=== PATIENT | male | born 1935 | race Hispanic/Latino ===

== ENCOUNTER 2017-12-22 21:27 | Inpatient (IN) | payer MEDICARE ==
[2017-12-22 21:36] VITALS: BMI 23.7
--- NOTE | 2017-12-22 21:52 | ED PDOC ---
Arrival/HPI - General Chief Complaint: GI Problem Time Seen by Provider: 12/22/17 21:38 Historian: Patient - History of Present Illness Narrative History of Present Illness (Text): 12/22/17 21:49 82 year old male, whose past medical history includes melanoma in the distance past, presents to the emergency department complaining of nausea and diarrhea which began earlier today. According to the family, patient has been feeling weak and fell one time hitting his head.Unknown LOC. Patient also had a few alcoholic drinker earlier. Patient denies any fever, chills, chest pain, shortness of breath, abdominal pain, vomiting, urinary symptoms, back pain, neck pain, headache, dizziness, or any other complaints. PMD: Dr. Haskins Time/Duration: Other (early today) Symptom Onset: Gradual Symptom Course: Unchanged Activities at Onset: Light Context: Home Past Medical History - Provider Review Nursing Documentation Reviewed: Yes - Tetanus Immunization Tetanus Immunization: Unknown - Cardiac Hx Hypertension: Yes - Integumentary Hx Melanoma: Yes - Musculoskeletal/Rheumatological Hx Falls: Yes Hx Unsteady Gait: Yes (knee replacement) - Psychiatric Hx Substance Use: No - Surgical History Hx Musculoskeletal Surgery: Yes (knee) Other/Comment: Left axillary lymph nodes removal - Suicidal Assessment Feels Threatened In Home Enviroment: No Family/Social History - Physician Review Nursing Documentation Reviewed: Yes Family/Social History: No Known Family HX Smoking Status: Never Smoked Hx Alcohol Use: Yes Frequency of alcohol use: Socially Hx Substance Use: No Allergies/Home Meds Allergies/Adverse Reactions: Allergies No Known Allergies Allergy (Verified 12/22/17 22:15) Home Medications: Home Meds Medication Instructions Recorded Confirmed No Known Home Med 12/22/17 12/22/17 Review of Systems - Physician Review All systems were reviewed & negative as marked: Yes - Review of Systems Constitutional: absent: Fevers, Other (Chills) Respiratory: absent: SOB Cardiovascular: absent: Chest Pain Gastrointestinal: Diarrhea, Nausea. absent: Abdominal Pain, Vomiting Genitourinary Male: absent: Dysuria, Frequency, Hematuria Musculoskeletal: absent: Back Pain, Neck Pain Neurological: absent: Headache, Dizziness Physical Exam Vital Signs Reviewed: Yes Vital Signs Temp Pulse Resp BP Pulse Ox 12/23/17 01:05 98.9 F 102 H 18 138/58 L 97 12/22/17 22:00 99.6 F 93 H 18 140/74 96 12/22/17 21:53 100.1 F H 118 H 19 134/73 97 Temperature: Febrile Blood Pressure: Normal Pulse: Tachycardic Respiratory Rate: Normal Appearance: Positive for: Well-Appearing, Non-Toxic, Comfortable Pain Distress: None Mental Status: Positive for: Alert and Oriented X 3 - Systems Exam Head: Present: Atraumatic, Normocephalic Pupils: Present: PERRL Extroacular Muscles: Present: EOMI Conjunctiva: Present: Normal Mouth: Present: Dry (slight) Neck: Present: Normal Range of Motion Respiratory/Chest: Present: Clear to Auscultation, Good Air Exchange. No: Respiratory Distress, Accessory Muscle Use Cardiovascular: Present: Regular Rate and Rhythm, Normal S1, S2. No: Murmurs Abdomen: No: Tenderness, Distention, Peritoneal Signs Back: Present: Normal Inspection Upper Extremity: Present: Normal Inspection. No: Cyanosis, Edema Lower Extremity: Present: Normal Inspection. No: Edema Neurological: Present: GCS=15, CN II-XII Intact, Speech Normal, Motor Func Grossly Intact, Normal Sensory Function Skin: Present: Warm, Dry, Normal Color. No: Rashes Psychiatric: Present: Alert, Oriented x 3, Normal Insight, Normal Concentration Medical Decision Making ED Course and Treatment: 12/22/17 21:45 Impression: 82 year old male presents complaining of nausea and diarrhea that began earlier today. Patient also felt weak and fell hitting his head. Plan: -- CT Head w/o Contrast -- EKG -- Labs -- Chest X-ray -- IV Fluids, Zofran Inj, Ativan -- Reassess and disposition Prior Visits: Notes and results from previous visits were reviewed. Progress Notes: 12/22/17 23:22 EKG shows Sinus tachycardia at 108 BPM with non-specific ST/T wave changes. Interpreted by me. 12/22/17 23:34 CXR Impression: As read by me, ? early lower right sided infiltrate. EXAM: CT Head Without Intravenous Contrast Dictated and Authenticated by: Mata Perkins MD 12/22/2017 11:40 PM IMPRESSION: 1. No intracranial hemorrhage. 2. Probable chronic microvascular ischemic changes. 3. Incidental/non-acute findings are described above. 12/22/17 23:36 Case discussed with residential program coordinator and Dr. Barlow who is aware and agrees with the plan. Accept patient into hospitalist service. - Lab Interpretations Lab Results: 12/22/17 22:05 12/22/17 22:05 Lab Results 12/22/17 23:26: pO2 105 H, VBG pH 7.44 H, VBG pCO2 28.0 L, VBG HCO3 19.0 L, VBG Total CO2 19.9 L, VBG O2 Sat (Calc) 99.9 H, VBG Base Excess -3.8 L, VBG Potassium 4.5, Glucose 102, Lactate 1.3, FiO2 21.0, Sodium 135.0, Chloride 108.0 H, Venous Blood Potassium 4.5 12/22/17 22:25: Urine Color Yellow, Urine Appearance Cloudy, Urine pH 8.5, Ur Specific [place] 1.015, Urine Protein >=300 H, Urine Glucose (UA) Negative, Urine Ketones Negative, Urine Blood Large H, Urine Nitrate Negative, Urine Bilirubin Negative, Urine Urobilinogen 0.2, Ur Leukocyte Esterase Moderate H, Urine RBC 0 - 2, Urine WBC 20 - 25, Ur Epithelial Cells 0 - 2, Urine Bacteria Many 12/22/17 22:05: Alcohol, Quantitative < 10 12/22/17 22:05: WBC 14.5 H, RBC 4.56, Hgb 13.7 L, Hct 40.8 L, MCV 89.5, MCH 30.0 , MCHC 33.6, RDW 14.5, Plt Count 193, MPV 9.5 12/22/17 22:05: Sodium 137, Potassium 5.2 H, Chloride 105, Carbon Dioxide 22, Anion Gap 16, BUN 35 H, Creatinine 1.8 H, Est GFR ( Amer) 44, Est GFR ( Non-Af Amer) 36, Random Glucose 113 H, Calcium 10.6 H, Total Bilirubin 0.9, AST 34, ALT 13, Alkaline Phosphatase 69, Lactate Dehydrogenase 559, Total Creatine Kinase 358 H, CK-MB (CK-2) 3.7 H, CK-MB (CK-2) % Cancelled, Troponin I 0.14 H*, Total Protein 7.4, Albumin 4.0, Globulin 3.3, Albumin/Globulin Ratio 1.2, Lipase 41 12/22/17 22:05: PT 11.4, INR 1.00, APTT 28.6 I have reviewed the lab results: Yes - RAD Interpretation Radiology Orders: 12/22/17 21:43 HEAD W/O CONTRAST [CT] Stat 12/22/17 21:45 CHEST ONE VIEW [RAD] Stat - EKG Interpretation Interpreted by ED Physician: Yes Type: 12 lead EKG - Medication Orders Current Medication Orders: Amlodipine Besylate (Norvasc) 2.5 mg PO DAILY MAGDALENA Aspirin (Aspirin Chewable) 81 mg PO DAILY MAGDALENA Atorvastatin Calcium (Lipitor) 10 mg PO DIN MAGDALENA Last Admin: 12/23/17 02:51 Dose: Not Given Non-Admin Reason: Patient Asleep Sodium Chloride (Sodium Chloride 0.9%) 1,000 mls @ 100 mls/hr IV .Q10H MAGDALENA Last Admin: 12/22/17 22:41 Dose: 100 mls/hr eMAR Start Stop Document 12/22/17 22:41 LASHA (Rec: 12/22/17 22:41 [id number]) Intravenous Solution Start Date 12/22/17 Start Time 22:56 Ceftriaxone Sodium (Rocephin 1 Gram Ivpb) 1 gm in 100 mls @ 100 mls/hr IVPB DAILY MAGDLAENA PRN Reason: Protocol Lorazepam (Ativan) 0.5 mg IVP Q6H PRN; Protocol PRN Reason: Agitation Pantoprazole Sodium (Protonix Inj) 40 mg IVP DAILY MAGDALENA Discontinued Medications Aspirin (Aspirin Chewable) 81 mg PO STAT STA Stop: 12/23/17 01:46 Last Admin: 12/23/17 02:51 Dose: Not Given Non-Admin Reason: Patient Asleep Enoxaparin Sodium (Lovenox) 60 mg SC STAT STA PRN Reason: Protocol Stop: 12/22/17 23:51 Last Admin: 12/23/17 00:41 Dose: 60 mg Subcutaneous Administrations Document 12/23/17 00:41 RG (Rec: 12/23/17 00:42 LASHA [id number]) Injection Site MAR Injection Site Right Abdomen Charges for Administration # of Subcutaneous Administrations 1 Sodium Chloride (Sodium Chloride 0.9%) 500 mls @ 500 mls/hr IV .Q1H STA Stop: 12/23/17 00:45 Last Admin: 12/23/17 00:42 Dose: 500 mls/hr eMAR Start Stop Document 12/23/17 00:42 RG (Rec: 12/23/17 00:42 RG [id number]) Intravenous Solution Start Date 12/23/17 Start Time 00:42 Ceftriaxone Sodium (Rocephin 1 Gram Ivpb) 1 gm in 100 mls @ 200 mls/hr IV ONCE STA PRN Reason: Protocol Stop: 12/23/17 00:34 Last Admin: 12/23/17 00:40 Dose: 200 mls/hr eMAR Start Stop Document 12/23/17 00:40 RG (Rec: 12/23/17 00:41 RG [id number]) Intravenous Solution Start Date 12/23/17 Start Time 00:40 Azithromycin (Zithromax 500mg In Ns) 500 mg in 250 mls @ 166.667 mls/hr IV STAT STA PRN Reason: Protocol Stop: 12/23/17 01:34 Last Admin: 12/23/17 01:15 Dose: 166.667 mls/hr eMAR Start Stop Document 12/23/17 01:15 RG (Rec: 12/23/17 01:52 [id number]) Intravenous Solution Start Date 12/23/17 Start Time 01:15 Sodium Chloride (Sodium Chloride 0.9%) 500 mls @ 999 mls/hr IV .Q31M STA Stop: 12/23/17 02:48 Lorazepam (Ativan) 1 mg IVP ONCE STA PRN Reason: Protocol Stop: 12/22/17 22:36 Last Admin: 12/22/17 22:38 Dose: 1 mg IVP Administration Document 12/22/17 22:38 RG (Rec: 12/22/17 22:40 [id number]) Charges for Administration # of IVP Administrations 1 Lorazepam (Ativan) 1 mg IVP ONCE ONE PRN Reason: Protocol Stop: 12/23/17 01:01 Last Admin: 12/23/17 01:53 Dose: 1 mg IVP Administration Document 12/23/17 01:53 RG (Rec: 12/23/17 01:53 [id number]) Charges for Administration # of IVP Administrations 1 Ondansetron HCl (Zofran Inj) 4 mg IVP ONCE ONE Stop: 12/22/17 21:46 Last Admin: 12/22/17 21:55 Dose: 4 mg IVP Administration Document 12/22/17 21:55 RG (Rec: 12/22/17 22:41 [id number]) Charges for Administration # of IVP Administrations 1 - Scribe Statement The provider has reviewed the documentation as recorded by the Jackelinibrosalva Robison Provider Scribe Attestation: All medical record entries made by the Scribe were at my direction and personally dictated by me. I have reviewed the chart and agree that the record accurately reflects my personal performance of the history, physical exam, medical decision making, and the department course for this patient. I have also personally directed, reviewed, and agree with the discharge instructions and disposition. Disposition/Present on Arrival - Present on Arrival Any Indicators Present on Arrival: No History of DVT/PE: No History of Uncontrolled Diabetes: No Urinary Catheter: No History of Decub. Ulcer: No History Surgical Site Infection Following: None - Disposition Have Diagnosis and Disposition been Completed?: Yes Diagnosis: NSTEMI (non-ST elevated myocardial infarction), Sepsis, UTI (urinary tract infection) Disposition: HOSPITALIZED Disposition Time: 00:10 Patient Plan: Admission Patient Problems: Current Active Problems Problem Status Onset NSTEMI (non-ST elevated myocardial infarction) Acute Sepsis Acute UTI (urinary tract infection) Acute Condition: STABLE
[2017-12-22 22:39] LABS: HEMOGLOBIN 13.7 g/dL (14.0-18.0); MEAN CELL VOLUME 89.5 fl (80.0-105.0); MEAN CORPUSCULAR HGB CONC 33.6 g/dl (31.0-37.0); MEAN PLATELET VOLUME 9.5 fl (7.0-11.0); RBC 4.56 10^6/uL (3.5-6.1); RED CELL DISTRIBUTION WIDTH 14.5 % (11.5-14.5); WHITE BLOOD COUNT 14.5 10^3/ul (4.5-11.0)
[2017-12-22] MEDS: Sodium Chloride 0.9% 1,000 ML IV SCH (22:41)
[2017-12-22 22:46] LABS: ALB/GLOB RATIO 1.2 (1.1-1.8); CALCIUM 10.6 mg/dL (8.4-10.5)
[2017-12-22 22:47] LABS: PARTIAL THROMBOPLASTIN TIME 28.6 Seconds (25.1-36.5); PROTHROMBIN TIME 11.4 SECONDS (9.4-12.5)
[2017-12-22 23:11] LABS: TROPONIN I 0.14 ng/mL
[2017-12-22 23:14] LABS: CK-MB 3.7 ng/mL (0.0-3.6)
[2017-12-22] MEDS ORDERED: Enoxaparin 80 mg Syringe SC STA (23:35)
[2017-12-22] MEDS ORDERED: Sodium Chloride 0.9% 500 ML IV STA (23:46)
[2017-12-22] MEDS ORDERED: Enoxaparin 60 mg Syringe SC STA (23:50)
[2017-12-22 23:57] LABS: VENOUS BLOOD GAS BASE EXCESS -3.8 mmol/L (0.0-2.0); VENOUS BLOOD GAS PO2 105 mm/Hg (30-55); VENOUS BLOOD PH 7.44 (7.32-7.43)
[2017-12-23 00:01] LABS: PH,URINE 8.5 (4.7-8.0); URINE BILIRUBIN NEGATIVE (NEGATIVE); URINE BLOOD LARGE (NEGATIVE); URINE GLUCOSE (UA) NEGATIVE (NEGATIVE); URINE LEUKOCYTE ESTERASE MODERATE Leu/uL (NEGATIVE); URINE PROTEIN >=300 mg/dL (<30 mg/dL); URINE UROBILINOGEN 0.2 E.U./dL (<1 E.U./dL)
[2017-12-23] MEDS ORDERED: Azithromycin 500MG/NS 250ml 500 MG/250 ML BAG IV STA (00:05)
[2017-12-23] MEDS ORDERED: cefTRIAXone 1 gm 1 GM/100 ML BAG IV STA (00:05)
[2017-12-23 00:15] LABS: URINE APPEARANCE CLOUDY (CLEAR); URINE COLOR YELLOW (YELLOW)
[2017-12-23 00:17] LABS: URINE BACTERIA MANY (NEG); URINE EPITHELIAL CELLS 0 - 2 /hpf (0-5); URINE RBC 0 - 2 /hpf (0-2); URINE WBC 20 - 25 /hpf (0-6)
[2017-12-23] MEDS ORDERED: Sodium Chloride 0.9% 1,000 ML IV SCH (01:45)
[2017-12-23] MEDS ORDERED: Sodium Chloride 0.9% 500 ML IV STA (02:18)
[2017-12-23] MEDS ORDERED: Sod Polystyrene Sulf 15 gm/60 ml Susp PO ONE (06:05)
--- NOTE | 2017-12-23 06:12 | CP.PCM.HP ---
<MarvinHerrera - Last Filed: 12/23/17 06:06> History of Present Illness - History of Present Illness History of Present Illness: Medicine H&P: Marvin, PGY 2 IM Resident Chief Complaint: Urinary complaints HPI: 82 M with no pertinent medical history presents s/p fall and with bu rning on urination for 3-4 months. Hx provided by son who is at bedside, as patient is somnolent 2/2 ativan administration. Son states that patient has been refusing to see a doctor for his urinary complaints, but has had burning as well as foul smelling urine. Today, patient was wearing socks without shoes in the bathroom and slipped and fell. Both patient and son deny any palpitations or aura before fall. Of note, patient's son mentions that the patient had a drink earlier - questionable hx of possible alcohol abuse. Of note, ED work up reveals REYES, positive tropes, leukocytosis, UTI, sinus tachycardia, and negative head CT. ROS 12 point ROS obtained and negative except as per HPI Surgical Hx: Melanoma removal Medical Hx: Melanoma Allergies: NKDA Social Hx: +EtOH; Quit smoking 45 years ago; Denies illicits Home Meds: Reviewed, as per MAR; patient mentioned an organic supplement, did not remember name Family Hx: Non-contributory Present on Admission - Present on Admission Any Indicators Present on Admission: No Past Patient History - Tetanus Immunizations Tetanus Immunization: Unknown - Past Social History Smoking Status: Never Smoked - CARDIAC Hx Hypertension: Yes - INTEGUMENTARY Hx Melanoma: Yes - MUSCULOSKELETAL/RHEUMATOLOGICAL Hx Falls: Yes Hx Unsteady Gait: Yes (knee replacement) - PSYCHIATRIC Hx Substance Use: No - SURGICAL HISTORY Hx Musculoskeletal Surgery: Yes (knee) Other/Comment: Left axillary lymph nodes removal Meds Allergies/Adverse Reactions: Allergies Allergy/AdvReac Type Severity Reaction Status Date / Time No Known Allergies Allergy Verified 12/22/17 22:15 Physical Exam - Constitutional Appears: Non-toxic, No Acute Distress Additional comments: foul smell - Head Exam Head Exam: ATRAUMATIC, NORMAL INSPECTION, NORMOCEPHALIC - Eye Exam Eye Exam: EOMI, Normal appearance, PERRL Pupil Exam: NORMAL ACCOMODATION, PERRL - ENT Exam ENT Exam: Mucous Membranes Moist, Normal Exam - Neck Exam Neck exam: Positive for: Normal Inspection - Respiratory Exam Respiratory Exam: Clear to Auscultation Bilateral, NORMAL BREATHING PATTERN - Cardiovascular Exam Cardiovascular Exam: REGULAR RHYTHM - GI/Abdominal Exam GI & Abdominal Exam: Normal Bowel Sounds, Soft. absent: Tenderness - Extremities Exam Extremities exam: Positive for: normal inspection - Back Exam Back exam: NORMAL INSPECTION - Neurological Exam Neurological exam: Alert, CN II-XII Intact, Normal Gait, Oriented x3, Reflexes Normal - Psychiatric Exam Psychiatric exam: Normal Affect, Normal Mood - Skin Skin Exam: Dry, Intact, Normal Color, Warm Results - Vital Signs Recent Vital Signs: Last Vital Signs Temp 98.9 F 12/23/17 01:05 Pulse 102 H 12/23/17 01:05 Resp 18 12/23/17 01:05 BP 138/58 L 12/23/17 01:05 Pulse Ox 97 12/23/17 01:05 - Labs Result Diagrams: 12/22/17 22:05 12/22/17 22:05 Labs: Laboratory Results - last 24 hr 12/23/17 02:45 Troponin I 0.24 H* D Assessment & Plan - Assessment and Plan (Free Text) Assessment: 82 M with no pertinent medical history admitted for urosepsis. Patient had fever, leukocytosis, tachycardia, and mod leukocytosis with pyuria and bacteriuria on labs. No evidence of llactate or hemodynamic instability. Patient also had 1.8 CR with positive tropes and negative EKG. At this time, troponin is most likely due to REYES. Of note, patient's alcohol level is negative and he had a drink earlier today. Plan Sepsis, likely 2/2 UTI - Rocephin - IVF - Blood culture, Urine Culture - Procal REYES, likely 2/2 UTI - IVF, avoid nephrotoxic agents Elevated troponin, likely 2/2 REYES - Still do cardiac work up give patient's age - Serial EKGs and Tropes, Cardio Consult - ASA, Lipitor, CCB - TSH, A1C, Lipid Panel Possible alcohol abuse - CIWA, aspiration, fall, and seizure protocols - No Ativan for now - Advised cessation PPX - Heparin q8, Protonix <Barlow,Bankimchan - Last Filed: 12/24/17 06:31> Results - Vital Signs Recent Vital Signs: Last Vital Signs Temp 97.4 F L 12/24/17 06:00 Pulse 79 12/24/17 06:00 Resp 20 12/24/17 06:00 BP 141/79 12/24/17 06:00 Pulse Ox 96 12/24/17 06:00 - Labs Result Diagrams: 12/23/17 06:30 12/23/17 07:00 Labs: Laboratory Results - last 24 hr 12/23/17 12/23/17 12/23/17 02:45 06:30 06:30 WBC 11.2 H D RBC 4.01 Hgb 11.8 L Hct 36.0 L MCV 89.8 MCH 29.4 MCHC 32.8 RDW 15.0 H Plt Count 155 MPV 9.7 Gran % 87.1 H Lymph % (Auto) 5.9 L [place] % (Auto) 6.5 H Eos % (Auto) 0.2 L Baso % (Auto) 0.3 Gran # 9.78 H Lymph # (Auto) 0.7 L [place] # (Auto) 0.7 H Eos # (Auto) 0.0 Baso # (Auto) 0.03 Sodium Potassium Chloride Carbon Dioxide Anion Gap BUN Creatinine Est GFR ( Amer) Est GFR (Non-Af Amer) Random Glucose Hemoglobin A1c 5.2 Calcium Phosphorus Magnesium Total Bilirubin AST ALT Alkaline Phosphatase Troponin I Total Protein Albumin Globulin Albumin/Globulin Ratio Triglycerides Cholesterol LDL Cholesterol Direct HDL Cholesterol Procalcitonin 11.01 H TSH 3rd Generation 12/23/17 12/23/17 12/23/17 06:30 07:00 07:00 WBC RBC Hgb Hct MCV MCH MCHC RDW Plt Count MPV Gran % Lymph % (Auto) [place] % (Auto) Eos % (Auto) Baso % (Auto) Gran # Lymph # (Auto) [place] # (Auto) Eos # (Auto) Baso # (Auto) Sodium 139 Potassium 4.3 Chloride 112 H Carbon Dioxide 20 L Anion Gap 11 BUN 32 H Creatinine 1.4 Est GFR ( Amer) 58 Est GFR (Non-Af Amer) 48 Random Glucose 96 Hemoglobin A1c Calcium 8.9 Phosphorus 3.9 Magnesium 2.2 Total Bilirubin 0.5 AST 48 ALT 24 Alkaline Phosphatase 50 Troponin I 0.24 H* 0.23 H* Total Protein 5.8 Albumin 2.8 L Globulin 3.0 Albumin/Globulin Ratio 0.9 L Triglycerides 55 Cholesterol 110 L LDL Cholesterol Direct 34 HDL Cholesterol 53 Procalcitonin TSH 3rd Generation 1.02 Attending/Attestation - Attestation I have personally seen and examined this patient.: Yes I have fully participated in the care of the patient.: Yes I have reviewed all pertinent clinical information: Yes Notes (Text): 12/24/17 06:30 Patient was seen when he was in the ER. Medical record was reviewed. Agree with history, physical examination, assessment and plan.
[2017-12-23 07:17] LABS: BASO # 0.03 K/mm3 (0.0-2.0); BASO % 0.3 % (0.0-3.0); EOS % 0.2 % (1.5-5.0); GRAN # 9.78 (1.4-6.5); GRAN % 87.1 % (50.0-68.0); HEMOGLOBIN 11.8 g/dL (14.0-18.0); LYMPH # 0.7 (1.2-3.4); LYMPH % 5.9 % (22.0-35.0); MEAN CELL VOLUME 89.8 fl (80.0-105.0); MEAN CORPUSCULAR HEMOGLOBIN 29.4 pg (25.0-35.0); MEAN CORPUSCULAR HGB CONC 32.8 g/dl (31.0-37.0); MEAN PLATELET VOLUME 9.7 fl (7.0-11.0); MONO # 0.7 (0.1-0.6); MONO % 6.5 % (1.0-6.0); RBC 4.01 10^6/uL (3.5-6.1); WHITE BLOOD COUNT 11.2 10^3/ul (4.5-11.0)
[2017-12-23 07:32] LABS: ALB/GLOB RATIO 0.9 (1.1-1.8); ALBUMIN 2.8 g/dL (3.0-4.8); CALCIUM 8.9 mg/dL (8.4-10.5)
--- NOTE | 2017-12-23 08:05 | CT ---
Date of service: 12/22/2017 PROCEDURE: CT HEAD WITHOUT CONTRAST. HISTORY: injury COMPARISON: 08/25/2014 TECHNIQUE: Axial computed tomography images were obtained through the head/brain without intravenous contrast. Supplemental Coronal and Sagittal projectections created and reviewed. Radiation dose: Total exam DLP = 1080.93 mGy-cm. This CT exam was performed using one or more of the following dose reduction techniques: Automated exposure control, adjustment of the mA and/or kV according to patient size, and/or use of iterative reconstruction technique. FINDINGS: HEMORRHAGE: No intracranial hemorrhage. BRAIN: No mass effect or edema. Cortical and cerebellar atrophy, periventricular small vessel disease. VENTRICLES: Unremarkable. No hydrocephalus. CALVARIUM: Unremarkable. PARANASAL SINUSES: Unremarkable as visualized. No significant inflammatory changes. MASTOID AIR CELLS: Unremarkable as visualized. No inflammatory changes. OTHER FINDINGS: None. IMPRESSION: No acute intracranial abnormalities. No significant findings to account for the clinical presentation. No significant interval change compared to the prior examination(s). Concordant results (preliminary interpretation) provided by [facility]. Procedure Completed: 22:53 Preliminary ([facility]) Report: Dictated and Authenticated: 23:40 Final Interpretation: 08:03
[2017-12-23 08:23] LABS: TROPONIN I 0.24 ng/mL
--- NOTE | 2017-12-23 08:32 | RAD ---
Date of service: 12/22/2017 PROCEDURE: CHEST RADIOGRAPH, 1 VIEW HISTORY: weak COMPARISON: None. FINDINGS: LUNGS: Clear. PLEURA: No pneumothorax or pleural fluid seen. CARDIOVASCULAR: No radiographic findings to suggest acute or significant cardiovascular disease. OSSEOUS STRUCTURES: No significant abnormalities. VISUALIZED UPPER ABDOMEN: Normal. OTHER FINDINGS: None. IMPRESSION: No active disease.
--- NOTE | 2017-12-23 09:52 | CARD ---
APPROVED REPORT Date of service: 12/23/2017 EKG Measurement Heart [id number] <Conclusion> Normal sinus rhythm NSSTW changes Prolonged QTc
[2017-12-23] MEDS: cefTRIAXone 1 gm 1 GM/100 ML BAG IVPB SCH (10:41)
[2017-12-23] MEDS: Sodium Chloride 0.9% 1,000 ML IV SCH ×2 (14:09→17:33)
--- NOTE | 2017-12-23 14:26 | CON ---
DATE: 12/23/2017 REASON FOR CONSULTATION: Hyperkalemia, acute kidney injury, UTI. HISTORY OF PRESENTING ILLNESS: This 82-year-old male previously unknown to me was admitted earlier today with complaints of frequency of urination, burning urination, hesitancy, dysuria. The patient also gives a history of constipation 3 to 4 days ago. He started taking some medication. Then, he started having some diarrhea. He denies any fever. He denies any chills. Denies any shortness of breath. Denies any abdominal pain or nausea or vomiting. In the Emergency Room, he was found to be hypotensive initially, his blood pressure was 84/50, heart rate was 98. He was afebrile. His initial blood work showed a WBC of 14.5. His BUN was 35. His potassium was 5.2. His creatinine was 1.8. Also, his urinalysis showed large blood and large leukocyte esterase. Consultation was requested for acute kidney injury and hyperkalemia. Overnight, the patient has received IV fluids. He was started on antibiotics, he has been getting Rocephin 1 g daily. Normal saline at 100 mL/hour. Currently, he is awake, he is alert. He still has some frequency of urination. He complains of hesitancy, urge incontinence. PAST MEDICAL AND SURGICAL HISTORY: Malignant melanoma, which was removed. SOCIAL HISTORY: Ex-smoker, active alcohol user, no drugs. ALLERGIES: NO KNOWN DRUG ALLERGIES. MEDICATIONS AT HOME: The patient reports he takes some herbal medication for his melanoma. REVIEW OF SYSTEMS: All systems are reviewed, pertinent positives as mentioned in the history of presenting illness, rest unremarkable. PHYSICAL EXAMINATION: GENERAL: Elderly male lying in bed in no acute distress at this time. VITAL SIGNS: Blood pressure 117/67, heart rate 84, respiratory rate 20, temperature 98.4. HEENT: Normocephalic, atraumatic, positive pallor. NECK: Supple. No JVD. LUNGS: Bilateral equal entry, bilateral equal expansion, no rales. CARDIAC: S1, S2. Regular rate and rhythm. No murmur, no rub. ABDOMEN: Soft, nondistended, nontender. Bowel sounds present. EXTREMITIES: No lower extremity edema. INTAKE AND OUTPUT: Not charted. LABORATORY DATA: WBC 11.2, hemoglobin 11.8, hematocrit 36, platelets 155. Sodium 139, potassium 4.3, chloride 112, CO2 20, BUN 32, creatinine 1.4, glucose 96, A1c 5.2, calcium 8.9, phosphorus 3.9, magnesium 2.2, albumin 2.8. Troponin first set 0.14, second set 0.24, third set 0.24. Procalcitonin 11. Urinalysis: Yellow, cloudy. The pH 8.5, specific gravity 1.015,m protein greater than 300, blood large, leukocyte esterase moderate, WBCs 20 to 25. Alcohol level less than 10. ASSESSMENT: 1. Acute kidney injury superimposed on chronic kidney disease stage II (?). 2. Hyperkalemia secondary to acute kidney injury, resolved. 3. Urinary tract infarction. 4. History of benign prostatic hypertrophy as per the patient. 5. History of malignant melanoma. PLAN: 1. Continue IV fluid resuscitation. 2. Follow up urine culture. 3. Continue empiric antibiotics. 4. Avoid nephrotoxins. 5. Monitor urine output. 6. Monitor daily labs. 7.. Renal ultrasound if renal function does not revert to normal. Nakia Berg MD
--- NOTE | 2017-12-23 17:39 | CP.PCM.PN ---
Subjective - Date & Time of Evaluation Date of Evaluation: 12/23/17 Time of Evaluation: 12:10 - Subjective Subjective: PGY-1 [facility] Medicine Progress Note for Dr. Elkins's service Patient seen and examined at bedside. Objective - Vital Signs/Intake and Output Vital Signs (last 24 hours): Temp Pulse Resp BP Pulse Ox 98.4 F 89 20 117/67 93 L 12/23/17 06:00 12/23/17 14:00 12/23/17 06:00 12/23/17 06:00 12/23/17 06:00 Intake and Output: 12/23/17 12/23/17 06:59 18:59 Intake Total 0 1200 Balance 0 1200 - Medications Medications: Current Medications Aspirin (Aspirin Chewable) 81 mg PO DAILY [facility] Last Admin: 12/23/17 10:41 Dose: 81 mg Atorvastatin Calcium (Lipitor) 10 mg PO DIN [facility] Last Admin: 12/23/17 02:51 Dose: Not Given Heparin Sodium (Porcine) (Heparin) 5,000 units SC Q8 MAGDALENA PRN Reason: Protocol Last Admin: 12/23/17 14:08 Dose: 5,000 units Sodium Chloride (Sodium Chloride 0.9%) 1,000 mls @ 100 mls/hr IV .Q10H MAGDALENA Last Admin: 12/23/17 14:09 Dose: 100 mls/hr Ceftriaxone Sodium (Rocephin 1 Gram Ivpb) 1 gm in 100 mls @ 100 mls/hr IVPB DAILY MAGDALENA PRN Reason: Protocol Last Admin: 12/23/17 10:41 Dose: 100 mls/hr Lorazepam (Ativan) 0.5 mg IVP Q6H PRN; Protocol PRN Reason: Agitation Metoprolol Tartrate (Lopressor) 12.5 mg PO 0800,1800 MAGDALENA Pantoprazole Sodium (Protonix Ec Tab) 40 mg PO ACB MAGDALENA - Labs Labs: 12/23/17 06:30 12/23/17 07:00 PT 11.4 SECONDS (9.4-12.5) 12/22/17 22:05 INR 1.00 12/22/17 22:05 APTT 28.6 Seconds (25.1-36.5) 12/22/17 22:05
--- NOTE | 2017-12-23 19:52 | CARD ---
APPROVED REPORT Date of service: 12/22/2017 EKG Measurement Heart [id number] <Conclusion> Sinus tachycardia Otherwise normal ECG
[2017-12-24] MEDS: Sodium Chloride 0.9% 1,000 ML IV SCH (06:24)
[2017-12-24 07:33] LABS: BASO # 0.01 K/mm3 (0.0-2.0); BASO % 0.1 % (0.0-3.0); EOS # 0.2 (0.0-0.7); EOS % 2.2 % (1.5-5.0); GRAN # 5.76 (1.4-6.5); GRAN % 79.1 % (50.0-68.0); HEMOGLOBIN 11.2 g/dL (14.0-18.0); LYMPH # 0.7 (1.2-3.4); LYMPH % 9.5 % (22.0-35.0); MEAN CELL VOLUME 90.3 fl (80.0-105.0); MEAN CORPUSCULAR HEMOGLOBIN 29.5 pg (25.0-35.0); MEAN CORPUSCULAR HGB CONC 32.7 g/dl (31.0-37.0); MEAN PLATELET VOLUME 10.3 fl (7.0-11.0); MONO # 0.7 (0.1-0.6); MONO % 9.1 % (1.0-6.0); RBC 3.8 10^6/uL (3.5-6.1); RED CELL DISTRIBUTION WIDTH 15.2 % (11.5-14.5); WHITE BLOOD COUNT 7.3 10^3/ul (4.5-11.0)
[2017-12-24 07:53] LABS: ALB/GLOB RATIO 0.9 (1.1-1.8); ALBUMIN 2.5 g/dL (3.0-4.8); ALT/SGPT 24 U/L (7-56); AST/SGOT 50 U/L (17-59); BLOOD UREA NITROGEN 28 mg/dL (7-21); CALCIUM 8.6 mg/dL (8.4-10.5); GFR NON-AFRICAN AMERICAN > 60; HDL CHOLESTEROL 47 mg/dL (29-60)
[2017-12-24 08:01] LABS: LDL CHOLESTEROL 45 mg/dL (0-129)
[2017-12-24] MEDS: Pantoprazole 40 mg EC Tab PO SCH (08:27)
--- NOTE | 2017-12-24 09:24 | CARD ---
APPROVED REPORT Date of service: 12/23/2017 EKG Measurement Heart [id number] <Conclusion> Normal sinus rhythm NSSTW changes Mildly prolonged QTC
[2017-12-24] MEDS ORDERED: Potassium Chloride 40 mEq/30 ml LIQ UD PO ONE (12:08)
--- NOTE | 2017-12-24 12:36 | PN ---
DATE: 12/24/2017 SUBJECTIVE: The patient is seen sitting up in bed. He is awake, he is alert, he is comfortable. He reports that the burning in the urine is much better. He denies any chest pain. He denies any shortness of breath. PHYSICAL EXAMINATION GENERAL: Elderly male sitting in bed. VITAL SIGNS: Blood pressure 147/91, heart rate 91, respiratory rate 16 to 18, temperature 97.4. HEENT: Normocephalic, atraumatic, positive pallor, no icterus. NECK: Supple, no JVD. LUNGS: Bilateral equal air entry, bilateral equal expansion, no rales. CARDIAC: S1, S2, regular rate and rhythm, no murmur, no gallop, no rub. ABDOMEN: Soft, nondistended, nontender, bowel sounds present. EXTREMITIES: No lower extremity edema. INTAKE AND OUTPUT: 3510/600. LABORATORY DATA: WBC 7, hemoglobin 11, hematocrit 34, platelets 147. Sodium 139, potassium 3.2, chloride 114, CO2 of 18, BUN 28, creatinine 1.1, glucose 77, A1c of 5.3, calcium 8.6, phosphorus 2.6 magnesium 1.9, albumin 2.5. Urine culture pending. Blood cultures, no growth. CURRENT MEDICATIONS: Aspirin, Ativan, Lipitor, Lopressor 12.5 b.i.d., Protonix, ceftriaxone, potassium 40 mEq given p.o. IV fluids discontinued. ASSESSMENT AND PLAN: 1. Acute kidney injury, resolving. 2. Hypokalemia. 3. Urinary tract infection. 4. Benign prostatic hypertrophy. 5. Hypertension. PLAN: 1. Agree with discontinuation of IV fluids. 2. Agree with p.o. supplementation of potassium. 3. Continue antibiotics as per ID recommendations. 4. Followup urine culture. 5. Discharge planning. Nakia Berg MD
--- NOTE | 2017-12-24 16:07 | CP.PCM.PN ---
Addendum entered and electronically signed by Gala Dallas DO 12/24/17 17:22: Cardio Consult is Dr. Lundy not Dr. Mc Original Note: <Gala Dallas - Last Filed: 12/24/17 16:01> Subjective - Date & Time of Evaluation Date of Evaluation: 12/24/17 Time of Evaluation: 10:15 - Subjective Subjective: PGY-1 [facility] Progress Note for Dr. Elkins's service Patient seen and examined at bedside. Patient offers no acute complaints. Patient denies chest pain, sob, n/v, constipation or diarrhea, dyusria, increased urinary frequency, headaches, dizziness, lightheadedness. Objective - Vital Signs/Intake and Output Vital Signs (last 24 hours): Temp Pulse Resp BP Pulse Ox 97.5 F L 68 18 137/73 96 12/24/17 12:00 12/24/17 12:00 12/24/17 12:00 12/24/17 12:00 12/24/17 06:00 Intake and Output: 12/24/17 12/24/17 06:59 18:59 Intake Total 2310 Output Total 600 Balance 1710 - Medications Medications: Current Medications Aspirin (Aspirin Chewable) 81 mg PO DAILY [facility] Last Admin: 12/23/17 10:41 Dose: 81 mg Atorvastatin Calcium (Lipitor) 10 mg PO DIN [facility] Last Admin: 12/23/17 17:43 Dose: 10 mg Heparin Sodium (Porcine) (Heparin) 5,000 units SC Q8 [facility]; Protocol Last Admin: 12/24/17 06:23 Dose: 5,000 units Ceftriaxone Sodium (Rocephin 1 Gram Ivpb) 1 gm in 100 mls @ 100 mls/hr IVPB DAILY [facility]; Protocol Last Admin: 12/23/17 10:41 Dose: 100 mls/hr Lorazepam (Ativan) 0.5 mg IVP Q6H PRN; Protocol PRN Reason: Agitation Metoprolol Tartrate (Lopressor) 12.5 mg PO 0800,1800 [facility] Last Admin: 12/24/17 08:28 Dose: 12.5 mg Pantoprazole Sodium (Protonix Ec Tab) 40 mg PO ACB [facility] Last Admin: 12/24/17 08:27 Dose: 40 mg - Labs Labs: 12/24/17 06:20 12/24/17 06:20 PT 11.4 SECONDS (9.4-12.5) 12/22/17 22:05 INR 1.00 12/22/17 22:05 APTT 28.6 Seconds (25.1-36.5) 12/22/17 22:05 - Constitutional Appears: Non-toxic, No Acute Distress - Head Exam Head Exam: NORMAL INSPECTION, NORMOCEPHALIC - Eye Exam Eye Exam: EOMI, Normal appearance - ENT Exam ENT Exam: Mucous Membranes Dry - Respiratory Exam Respiratory Exam: Clear to Ausculation Bilateral, NORMAL BREATHING PATTERN - Cardiovascular Exam Cardiovascular Exam: REGULAR RHYTHM, +S1, +S2 - GI/Abdominal Exam GI & Abdominal Exam: Soft, Normal Bowel Sounds - Neurological Exam Neurological Exam: Alert, Awake, Oriented x3 - Psychiatric Exam Psychiatric exam: Normal Affect, Normal Mood - Skin Skin Exam: Intact, Normal Color Assessment and Plan - Assessment and Plan (Free Text) Assessment: 82 M with no pertinent medical history admitted for urosepsis. Patient had fever, leukocytosis, tachycardia, and mod leukocytosis with pyuria and bacteriuria on labs. Patient also had 1.8 CR with positive tropes and negative EKG. At this time, troponin is most likely due to REYES. Treated with Rocehpin for UTI and normal saline for REYES Plan: REYES likely 2/2 UTI treated with Rocephin 1 gm IVPB; afebrile; leukocytosis resolved; patient complaining of no urinary symptoms IVF, avoid nephrotoxic agents Repeat CMP in AM Hypokalemia KCl 40meq po once Repeat CMP in AM Elevated troponin Cardio Consult: Dr. Mc - recommendations appreciated likely secondary to REYES PPX DVT ppx : Heparin 5000 units q8 GI ppx: Protonix 40 mg po <Rico Elkins - Last Filed: 12/24/17 17:16> Objective - Vital Signs/Intake and Output Vital Signs (last 24 hours): Temp Pulse Resp BP Pulse Ox 97.5 F L 68 18 137/73 96 12/24/17 12:00 12/24/17 12:00 12/24/17 12:00 12/24/17 12:00 12/24/17 06:00 Intake and Output: 12/24/17 12/24/17 06:59 18:59 Intake Total 2310 Output Total 600 Balance 1710 - Medications Medications: Current Medications Aspirin (Aspirin Chewable) 81 mg PO DAILY [facility] Last Admin: 12/24/17 16:47 Dose: 81 mg Atorvastatin Calcium (Lipitor) 10 mg PO DIN [facility] Last Admin: 12/23/17 17:43 Dose: 10 mg Heparin Sodium (Porcine) (Heparin) 5,000 units SC Q8 [facility]; Protocol Last Admin: 12/24/17 16:48 Dose: 5,000 units Ceftriaxone Sodium (Rocephin 1 Gram Ivpb) 1 gm in 100 mls @ 100 mls/hr IVPB DAILY [facility]; Protocol Last Admin: 12/24/17 16:48 Dose: 100 mls/hr Lorazepam (Ativan) 0.5 mg IVP Q6H PRN; Protocol PRN Reason: Agitation Metoprolol Tartrate (Lopressor) 12.5 mg PO 0800,1800 [facility] Last Admin: 12/24/17 08:28 Dose: 12.5 mg Pantoprazole Sodium (Protonix Ec Tab) 40 mg PO ACB [facility] Last Admin: 12/24/17 08:27 Dose: 40 mg - Labs Labs: 12/24/17 06:20 12/24/17 06:20 PT 11.4 SECONDS (9.4-12.5) 12/22/17 22:05 INR 1.00 12/22/17 22:05 APTT 28.6 Seconds (25.1-36.5) 12/22/17 22:05 Attending/Attestation - Attestation I have personally seen and examined this patient.: Yes I have fully participated in the care of the patient.: Yes I have reviewed all pertinent clinical information, including history, physical exam and plan: Yes Notes (Text): 12/24/17 17:07 82 year old male with no known past medical history presented with UTI and REYES. He was started on IVF and antibiotics. Symptoms have improved. REYES and l eukocytosis resolved. UCx is pending. Nephrology is following. Recommended outpatient urology follow up. He was also found to have elevated troponin, probably elevated in setting of REYES. He denies any chest pain or shortness of breath. He is on aspirin, statin and metoprolol. Cardiology, Dr. Lundy, is aware of patient; will see patient tomorrow morning. Will replete and repeat potassium. Rico Elkins MD Hospitalist.
[2017-12-24] MEDS: cefTRIAXone 1 gm 1 GM/100 ML BAG IVPB SCH (16:48)
[2017-12-25 06:26] LABS: BASO # 0.02 K/mm3 (0.0-2.0); BASO % 0.3 % (0.0-3.0); EOS # 0.1 (0.0-0.7); EOS % 1.8 % (1.5-5.0); GRAN # 4.94 (1.4-6.5); GRAN % 75.9 % (50.0-68.0); HEMOGLOBIN 11.7 g/dL (14.0-18.0); LYMPH # 0.8 (1.2-3.4); LYMPH % 11.7 % (22.0-35.0); MEAN CELL VOLUME 89.3 fl (80.0-105.0); MEAN CORPUSCULAR HEMOGLOBIN 29.3 pg (25.0-35.0); MEAN CORPUSCULAR HGB CONC 32.8 g/dl (31.0-37.0); MONO # 0.7 (0.1-0.6); MONO % 10.3 % (1.0-6.0); RED CELL DISTRIBUTION WIDTH 14.8 % (11.5-14.5); WHITE BLOOD COUNT 6.5 10^3/ul (4.5-11.0)
[2017-12-25 06:53] LABS: ALB/GLOB RATIO 0.9 (1.1-1.8); ALBUMIN 2.7 g/dL (3.0-4.8); ALT/SGPT 26 U/L (7-56); AST/SGOT 39 U/L (17-59); BLOOD UREA NITROGEN 19 mg/dL (7-21); CALCIUM 8.9 mg/dL (8.4-10.5); GFR NON-AFRICAN AMERICAN > 60
[2017-12-25] MEDS: Pantoprazole 40 mg EC Tab PO SCH (08:49)
[2017-12-25] MEDS ORDERED: Potassium Phosphate 15 MMOLE in Sodium Chloride 0.9% 250 ML IVPB ONE (08:53)
[2017-12-25] MEDS ORDERED: Potassium Chloride 40 mEq/30 ml LIQ UD PO ONE (09:05)
[2017-12-25] MEDS: cefTRIAXone 1 gm 1 GM/100 ML BAG IVPB SCH (11:08)
[2017-12-25] MEDS: Potassium & Sodium Phosphate PO SCH ×3 (11:09→17:25)
--- NOTE | 2017-12-25 16:58 | CP.PCM.PN ---
<Gala Dallas - Last Filed: 12/25/17 17:02> Subjective - Date & Time of Evaluation Date of Evaluation: 12/25/17 Time of Evaluation: 11:45 - Subjective Subjective: PGY-1 [facility] Progress Note for Dr. Elkins's service Patient seen and examined at bedside. Patient offers no acute complaints. Patient denies chest pain, sob, n/v, constipation or diarrhea, headaches, dysuria. Objective - Vital Signs/Intake and Output Vital Signs (last 24 hours): Temp Pulse Resp BP Pulse Ox 98.4 F 77 20 147/66 95 12/25/17 11:59 12/25/17 14:00 12/25/17 11:59 12/25/17 11:59 12/25/17 06:00 Intake and Output: 12/25/17 12/25/17 06:59 18:59 Intake Total 780 Output Total 750 Balance 30 - Medications Medications: Current Medications Aspirin (Aspirin Chewable) 81 mg PO DAILY [facility] Last Admin: 12/25/17 11:18 Dose: Not Given Atorvastatin Calcium (Lipitor) 10 mg PO DIN [facility] Last Admin: 12/24/17 17:13 Dose: 10 mg Heparin Sodium (Porcine) (Heparin) 5,000 units SC Q8 [facility]; Protocol Last Admin: 12/25/17 15:09 Dose: Not Given Ceftriaxone Sodium (Rocephin 1 Gram Ivpb) 1 gm in 100 mls @ 100 mls/hr IVPB DAILY [facility]; Protocol Last Admin: 12/25/17 11:08 Dose: 100 mls/hr Lorazepam (Ativan) 0.5 mg IVP Q6H PRN; Protocol PRN Reason: Agitation Metoprolol Tartrate (Lopressor) 12.5 mg PO 0800,1800 [facility] Last Admin: 12/25/17 08:49 Dose: 12.5 mg Pantoprazole Sodium (Protonix Ec Tab) 40 mg PO ACB [facility] Last Admin: 12/25/17 08:49 Dose: 40 mg Potassium Phos/Sodium Phos (Neutra-Phos) 1 pkt PO TID [facility] Last Admin: 12/25/17 15:05 Dose: 1 pkt - Labs Labs: 12/25/17 06:00 12/25/17 06:00 PT 11.4 SECONDS (9.4-12.5) 12/22/17 22:05 INR 1.00 12/22/17 22:05 APTT 28.6 Seconds (25.1-36.5) 12/22/17 22:05 - Additional Findings Additional findings: - Constitutional Appears: Non-toxic, No Acute Distress - Head Exam Head Exam: NORMAL INSPECTION, NORMOCEPHALIC - Eye Exam Eye Exam: EOMI, Normal appearance - ENT Exam ENT Exam: Mucous Membranes Dry - Respiratory Exam Respiratory Exam: Clear to Ausculation Bilateral, NORMAL BREATHING PATTERN - Cardiovascular Exam Cardiovascular Exam: REGULAR RHYTHM, +S1, +S2 - GI/Abdominal Exam GI & Abdominal Exam: Soft, Normal Bowel Sounds - Neurological Exam Neurological Exam: Alert, Awake, Oriented x3 - Psychiatric Exam Psychiatric exam: Normal Affect, Normal Mood - Skin Skin Exam: Intact, Normal Color Assessment and Plan - Assessment and Plan (Free Text) Assessment: 82 M with no pertinent medical history admitted for urosepsis. Patient had fever, leukocytosis, tachycardia, and mod leukocytosis with pyuria and bacteriuria on labs. Patient also had 1.8 CR with positive tropes and negative EKG. At this time, troponin is most likely due to REYES. Treated with Rocehpin for UTI and normal saline for REYES Plan: REYES Nephro Consulted- Dr. Berg- continue NS; patient stable likely 2/2 UTI treated with Rocephin 1 gm IVPB; afebrile; leukocytosis resolved; patient complaining of no urinary symptoms; U cx positive for gram cocci IVF, avoid nephrotoxic agents Repeat CMP in AM Hypokalemia (resolved) Phos/Potassium 1 packet po TID CMP in AM Elevated troponin Cardio Consult: Dr. Lundy - recommendations appreciated likely secondary to REYES PPX DVT ppx : Heparin 5000 units q8 GI ppx: Protonix 40 mg po Medical Management discussed with Dr. Elkins. <Rico Elkins - Last Filed: 12/25/17 17:44> Objective - Vital Signs/Intake and Output Vital Signs (last 24 hours): Temp Pulse Resp BP Pulse Ox 97.6 F 63 20 138/99 H 95 12/25/17 17:18 12/25/17 17:25 12/25/17 17:18 12/25/17 17:25 12/25/17 06:00 Intake and Output: 12/25/17 12/25/17 06:59 18:59 Intake Total 780 Output Total 750 Balance 30 - Medications Medications: Current Medications Aspirin (Aspirin Chewable) 81 mg PO DAILY [facility] Last Admin: 12/25/17 11:18 Dose: Not Given Atorvastatin Calcium (Lipitor) 10 mg PO DIN [facility] Last Admin: 12/25/17 17:25 Dose: 10 mg Heparin Sodium (Porcine) (Heparin) 5,000 units SC Q8 [facility]; Protocol Last Admin: 12/25/17 15:09 Dose: Not Given Ceftriaxone Sodium (Rocephin 1 Gram Ivpb) 1 gm in 100 mls @ 100 mls/hr IVPB DAILY [facility]; Protocol Last Admin: 12/25/17 11:08 Dose: 100 mls/hr Lorazepam (Ativan) 0.5 mg IVP Q6H PRN; Protocol PRN Reason: Agitation Metoprolol Tartrate (Lopressor) 12.5 mg PO 0800,1800 [facility] Last Admin: 12/25/17 17:25 Dose: 12.5 mg Pantoprazole Sodium (Protonix Ec Tab) 40 mg PO ACB [facility] Last Admin: 12/25/17 08:49 Dose: 40 mg Potassium Phos/Sodium Phos (Neutra-Phos) 1 pkt PO TID [facility] Last Admin: 12/25/17 17:25 Dose: 1 pkt - Labs Labs: 12/25/17 06:00 12/25/17 06:00 PT 11.4 SECONDS (9.4-12.5) 12/22/17 22:05 INR 1.00 12/22/17 22:05 APTT 28.6 Seconds (25.1-36.5) 12/22/17 22:05 Attending/Attestation - Attestation I have personally seen and examined this patient.: Yes I have fully participated in the care of the patient.: Yes I have reviewed all pertinent clinical information, including history, physical exam and plan: Yes Notes (Text): 12/25/17 17:43 82 year old male with no known past medical history presented with UTI and REYES. He was started on IVF and antibiotics. REYES and leukocytosis resolved. UCx is pending. Nephrology is following. Recommended outpatient urology follow up. He was also found to have elevated troponin, probably elevated in setting of REYES. He denies any chest pain or shortness of breath. He is on aspirin, statin and metoprolol. Cardiology evaluation is still pending. Dr. Lundy, is aware of patient. I also spoke with Dr. Dale today. D/c planning home with services vs [facility]. Rico Elkins MD Hospitalist.
--- NOTE | 2017-12-25 21:08 | PN ---
DATE: 12/25/2017 SUBJECTIVE: The patient is seen lying in bed. He is comfortable. He denies any burning in the urine. He complains of some cough. PHYSICAL EXAMINATION: GENERAL: Elderly male lying in bed. VITAL SIGNS: Blood pressure 138/99, respiratory rate 16, temperature 97.6, heart rate 63. NECK: Supple, no JVD. LUNGS: Bilateral equal air entry, bilateral equal expansion. CARDIAC: S1 and S2, regular rate and rhythm, no murmur, no rub. ABDOMEN: Soft, nondistended, nontender, bowel sounds present. EXTREMITIES: No lower extremity edema. LABORATORY DATA: WBC 6.5, hemoglobin 11.7, hematocrit 36, platelets 165. Sodium 140, potassium 3.6, chloride 114, CO2 of 18, BUN 19, creatinine 0.9, glucose 78. MEDICATIONS: List reviewed. ASSESSMENT: 1. Resolved acute kidney injury. 2. Prerenal azotemia. 3. Urinary tract infection. 4. History of benign prostatic hypertrophy. PLAN: 1. Continue antibiotics as per ID recommendations, switch to oral? 2. Avoid nephrotoxins. 3. Stable from the renal standpoint. Nakia Berg MD
[2017-12-26 07:24] LABS: BASO # 0.02 K/mm3 (0.0-2.0); BASO % 0.3 % (0.0-3.0); EOS # 0.2 (0.0-0.7); EOS % 2.5 % (1.5-5.0); GRAN # 4.44 (1.4-6.5); HEMOGLOBIN 12.7 g/dL (14.0-18.0); LYMPH # 1.2 (1.2-3.4); LYMPH % 18.3 % (22.0-35.0); MEAN CELL VOLUME 88.1 fl (80.0-105.0); MEAN CORPUSCULAR HEMOGLOBIN 29.7 pg (25.0-35.0); MEAN CORPUSCULAR HGB CONC 33.7 g/dl (31.0-37.0); MEAN PLATELET VOLUME 9.9 fl (7.0-11.0); MONO # 0.9 (0.1-0.6); MONO % 12.9 % (1.0-6.0); RBC 4.28 10^6/uL (3.5-6.1); RED CELL DISTRIBUTION WIDTH 14.6 % (11.5-14.5); WHITE BLOOD COUNT 6.7 10^3/ul (4.5-11.0)
[2017-12-26 07:38] LABS: ALB/GLOB RATIO 0.9 (1.1-1.8); ALBUMIN 3.1 g/dL (3.0-4.8); ALT/SGPT 27 U/L (7-56); AST/SGOT 29 U/L (17-59); BLOOD UREA NITROGEN 14 mg/dL (7-21); CALCIUM 8.9 mg/dL (8.4-10.5); GFR NON-AFRICAN AMERICAN > 60
[2017-12-26] MEDS: Pantoprazole 40 mg EC Tab PO SCH (08:24)
[2017-12-26] MEDS: Potassium & Sodium Phosphate PO SCH ×3 (10:06→18:07)
[2017-12-26] MEDS: cefTRIAXone 1 gm 1 GM/100 ML BAG IVPB SCH (10:06)
--- NOTE | 2017-12-26 15:16 | PN ---
DATE: 12/26/2017 SUBJECTIVE: The patient is seen sitting in bed. He is awake, he is alert, he is comfortable. He denies any pain. He denies any shortness of breath. He denies any chest tightness. PHYSICAL EXAMINATION: GENERAL: Elderly male, sitting in bed. VITAL SIGNS: Blood pressure 147/69, heart rate 72, respiratory rate 18, temperature 98.1. HEENT: Normocephalic, atraumatic, positive pallor. NECK: Supple, no JVD. LUNGS: Bilateral equal air entry, bilateral equal expansion. CARDIAC: S1 and S2, regular rate and rhythm, no murmur, no rub. ABDOMEN: Soft, nondistended, nontender, bowel sounds present. EXTREMITIES: No lower extremity edema. INTAKE AND OUTPUT: 940/200. LABORATORY DATA: WBC 6.7, hemoglobin 12.7, hematocrit 37.7, platelets 192. Sodium 138, potassium 3.8, chloride 111, CO2 of 18, BUN 14, creatinine 0.8, glucose 92, calcium 8.9, phosphorus 2.9, magnesium 1.8. Urine culture: Strep viridans. CURRENT MEDICATIONS: List reviewed. ASSESSMENT: 1. Acute kidney injury, resolved. 2. Hypophosphatemia, resolved. 3. Hypertension, well controlled. 4. Urinary tract infection. 5. History of benign prostatic hypertrophy/frequency of urination. PLAN: 1. Continue antibiotics as per ID recommendations. 2. Switch to p.o. antibiotics. 3. Start Flomax 0.4 mg daily. 4. Stable from renal standpoint. 5. Discharge planning. Nakia Berg MD
--- NOTE | 2017-12-26 17:46 | CP.PCM.PN ---
<Gala Dallas - Last Filed: 12/26/17 17:40> Subjective - Date & Time of Evaluation Date of Evaluation: 12/26/17 Time of Evaluation: 10:20 - Subjective Subjective: PGY-1 [facility] Progress Note Patient seen examined at bedside. Patient offers no acute complaints. Patient denies chest pain, dysuria, headaches, dizziness, lightheadedness, sob, constipation or diarrhea, weakness. Objective - Vital Signs/Intake and Output Vital Signs (last 24 hours): Temp Pulse Resp BP Pulse Ox 98.1 F 71 18 147/69 96 12/26/17 12:00 12/26/17 14:00 12/26/17 12:00 12/26/17 12:00 12/26/17 06:00 Intake and Output: 12/26/17 12/26/17 06:59 18:59 Intake Total 0 Output Total 200 Balance -200 - Medications Medications: Current Medications Amoxicillin/Clavulanate Potassium (Augmentin 875 Mg-125 Mg Tab) 1 tab PO Q12 [facility]; Protocol Stop: 12/27/17 12:00 Aspirin (Aspirin Chewable) 81 mg PO DAILY [facility] Last Admin: 12/26/17 10:45 Dose: Not Given Atorvastatin Calcium (Lipitor) 10 mg PO DIN [facility] Last Admin: 12/25/17 17:25 Dose: 10 mg Heparin Sodium (Porcine) (Heparin) 5,000 units SC Q8 [facility]; Protocol Last Admin: 12/26/17 14:23 Dose: 5,000 units Lorazepam (Ativan) 0.5 mg IVP Q6H PRN; Protocol PRN Reason: Agitation Metoprolol Tartrate (Lopressor) 12.5 mg PO 0800,1800 [facility] Last Admin: 12/26/17 08:24 Dose: 12.5 mg Pantoprazole Sodium (Protonix Ec Tab) 40 mg PO ACB [facility] Last Admin: 12/26/17 08:24 Dose: 40 mg Potassium Phos/Sodium Phos (Neutra-Phos) 1 pkt PO TID [facility] Last Admin: 12/26/17 14:24 Dose: 1 pkt Tamsulosin HCl (Flomax) 0.4 mg PO DAILY [facility] Last Admin: 12/26/17 15:46 Dose: 0.4 mg - Labs Labs: 12/26/17 06:30 12/26/17 06:30 PT 11.4 SECONDS (9.4-12.5) 12/22/17 22:05 INR 1.00 12/22/17 22:05 APTT 28.6 Seconds (25.1-36.5) 12/22/17 22:05 - Additional Findings Additional findings: - Constitutional Appears: Non-toxic, No Acute Distress - Head Exam Head Exam: NORMAL INSPECTION, NORMOCEPHALIC - Eye Exam Eye Exam: EOMI, Normal appearance - ENT Exam ENT Exam: Mucous Membranes Dry - Respiratory Exam Respiratory Exam: Clear to Ausculation Bilateral, NORMAL BREATHING PATTERN - Cardiovascular Exam Cardiovascular Exam: REGULAR RHYTHM, +S1, +S2 - GI/Abdominal Exam GI & Abdominal Exam: Soft, Normal Bowel Sounds - Neurological Exam Neurological Exam: Alert, Awake, Oriented x3 - Psychiatric Exam Psychiatric exam: Normal Affect, Normal Mood - Skin Skin Exam: Intact, Normal Color Assessment and Plan - Assessment and Plan (Free Text) Assessment: 82 M with no pertinent medical history admitted for urosepsis. Patient had fever, leukocytosis, tachycardia, and mod leukocytosis with pyuria and bacteriuria on labs. Patient also had 1.8 CR with positive tropes and negative EKG. At this time, troponin is most likely due to REYES. Treated with Rocehpin for UTI and normal saline for REYES; positive culture for strep. viridans Plan: REYES Nephro Consulted- Dr. Berg- continue NS; patient stable likely 2/2 UTI treated with Rocephin 1 gm IVPB; Switched to Augmentin 1 tab po q12 (need 2 more days total after today); afebrile; leukocytosis resolved; patient complaining of no urinary symptoms; U cx positive for strep viridans IVF, avoid nephrotoxic agents Repeat CMP in AM Cr likely at baseline; Repeat CMP in AM BPH Flomax 0.4mg po daiyl Hypokalemia (resolved) Phos/Potassium 1 packet po TID CMP in AM Elevated troponin Cardio Consult: Dr. Lundy - non cardiac in origin; likely secondary to REYES PPX DVT ppx : Heparin 5000 units q8 GI ppx: Protonix 40 mg po <Rico Elkins - Last Filed: 12/26/17 18:05> Objective - Vital Signs/Intake and Output Vital Signs (last 24 hours): Temp Pulse Resp BP Pulse Ox 98.1 F 71 18 147/69 96 12/26/17 12:00 12/26/17 14:00 12/26/17 12:00 12/26/17 12:00 12/26/17 06:00 Intake and Output: 12/26/17 12/26/17 06:59 18:59 Intake Total 0 Output Total 200 Balance -200 - Medications Medications: Current Medications Amoxicillin/Clavulanate Potassium (Augmentin 875 Mg-125 Mg Tab) 1 tab PO Q12 [facility]; Protocol Stop: 12/27/17 12:00 Aspirin (Aspirin Chewable) 81 mg PO DAILY [facility] Last Admin: 12/26/17 10:45 Dose: Not Given Atorvastatin Calcium (Lipitor) 10 mg PO DIN [facility] Last Admin: 12/25/17 17:25 Dose: 10 mg Heparin Sodium (Porcine) (Heparin) 5,000 units SC Q8 [facility]; Protocol Last Admin: 12/26/17 14:23 Dose: 5,000 units Lorazepam (Ativan) 0.5 mg IVP Q6H PRN; Protocol PRN Reason: Agitation Metoprolol Tartrate (Lopressor) 12.5 mg PO 0800,1800 [facility] Last Admin: 12/26/17 08:24 Dose: 12.5 mg Pantoprazole Sodium (Protonix Ec Tab) 40 mg PO ACB [facility] Last Admin: 12/26/17 08:24 Dose: 40 mg Potassium Phos/Sodium Phos (Neutra-Phos) 1 pkt PO TID [facility] Last Admin: 12/26/17 14:24 Dose: 1 pkt Tamsulosin HCl (Flomax) 0.4 mg PO DAILY [facility] Last Admin: 12/26/17 15:46 Dose: 0.4 mg - Labs Labs: 12/26/17 06:30 12/26/17 06:30 PT 11.4 SECONDS (9.4-12.5) 12/22/17 22:05 INR 1.00 12/22/17 22:05 APTT 28.6 Seconds (25.1-36.5) 12/22/17 22:05 Attending/Attestation - Attestation I have personally seen and examined this patient.: Yes I have fully participated in the care of the patient.: Yes I have reviewed all pertinent clinical information, including history, physical exam and plan: Yes Notes (Text): 12/26/17 18:03 82 year old male with no known past medical history presented with UTI and REYES. He was started on IVF and antibiotics. REYES and leukocytosis resolved. Antibiotics switched to po today. Nephrology is following. Recommended outpatient urology follow up. He was also found to have elevated troponin, likely elevated in setting of REYES. Case was discussed with Dr. Lundy who agrees; no further cardiac workup recommended. He denies any chest pain or shortness of breath. He is on aspirin, statin and metoprolol. D/c planning to [facility] or SNF if accepted. Rico Elkins MD Hospitalist.
[2017-12-26] MEDS: Amoxicillin-Clav 875-125 mg Tab PO SCH (21:41)
[2017-12-27 06:38] VITALS: O2SAT 98
[2017-12-27 07:32] LABS: BASO # 0.02 K/mm3 (0.0-2.0); BASO % 0.4 % (0.0-3.0); EOS # 0.2 (0.0-0.7); EOS % 3.2 % (1.5-5.0); GRAN # 3.58 (1.4-6.5); GRAN % 63.9 % (50.0-68.0); HEMOGLOBIN 11.7 g/dL (14.0-18.0); LYMPH # 1.2 (1.2-3.4); LYMPH % 21.6 % (22.0-35.0); MEAN CELL VOLUME 88.3 fl (80.0-105.0); MEAN CORPUSCULAR HEMOGLOBIN 29.2 pg (25.0-35.0); MEAN CORPUSCULAR HGB CONC 33.1 g/dl (31.0-37.0); MONO # 0.6 (0.1-0.6); MONO % 10.9 % (1.0-6.0); RBC 4.01 10^6/uL (3.5-6.1); RED CELL DISTRIBUTION WIDTH 14.4 % (11.5-14.5); WHITE BLOOD COUNT 5.6 10^3/ul (4.5-11.0)
[2017-12-27 08:02] LABS: ALB/GLOB RATIO 0.9 (1.1-1.8); ALBUMIN 2.8 g/dL (3.0-4.8); ALT/SGPT 21 U/L (7-56); AST/SGOT 24 U/L (17-59); BLOOD UREA NITROGEN 12 mg/dL (7-21); CALCIUM 8.4 mg/dL (8.4-10.5); GFR NON-AFRICAN AMERICAN > 60
[2017-12-27] MEDS ORDERED: Potassium Chloride 20 mEq ER Tab PO ONE ×2 (08:22→09:23)
[2017-12-27] MEDS: Pantoprazole 40 mg EC Tab PO SCH (08:23)
[2017-12-27] MEDS: Amoxicillin-Clav 875-125 mg Tab PO SCH (09:35)
[2017-12-27] MEDS: Potassium & Sodium Phosphate PO SCH ×3 (09:35→18:01)
--- NOTE | 2017-12-27 18:34 | PN ---
DATE: 12/27/2017 SUBJECTIVE: The patient is seen sitting in bed. He is awake. He is alert. He is very talkative, confused, wants to leave. PHYSICAL EXAMINATION: GENERAL: Elderly male sitting in bed. VITAL SIGNS: Blood pressure 130/65, heart rate 76, respiratory rate 19, temperature 98.7. HEENT: Normocephalic, atraumatic, positive pallor. NECK: Supple, no JVD. LUNGS: Bilateral equal air entry, bilateral equal expansion, no rales. CARDIAC: S1 and S2, regular rate and rhythm, no murmur, no rub. ABDOMEN: Soft, nondistended, nontender. Bowel sounds present. EXTREMITIES: No lower extremity edema. INTAKE AND OUTPUT: 2140/1800. LABORATORY DATA: Hemoglobin 11.7, potassium 3.5, BUN 12, creatinine 0.8, phosphorus 3.2, magnesium 1.8, albumin 2.8. CURRENT MEDICATIONS: Ativan, Flomax, heparin, Lipitor, Lopressor, Neutra-Phos, Protonix, potassium 40 mEq was given this morning. ASSESSMENT: 1. Resolved acute kidney injury. 2. Urinary tract infection on antibiotics. 3. Benign prostatic hypertrophy, now on Flomax. 4. Hypokalemia. PLAN: 1. Agree with potassium supplementation. 2. Continue Flomax. 3. The patient is stable from renal standpoint, we will discontinue followup. Nakia Berg MD
[2017-12-27 18:57] VITALS: BP 130/65; PULSE 76; RESP 19; TEMP 98.7
--- NOTE | 2017-12-27 21:02 | CP.PCM.DIS ---
Addendum entered and electronically signed by Gala Dallas DO 12/27/17 21:03: Physical Exam added into addendum - Constitutional Appears: Non-toxic, No Acute Distress - Head Exam Head Exam: NORMAL INSPECTION, NORMOCEPHALIC - Eye Exam Eye Exam: EOMI, Normal appearance - ENT Exam ENT Exam: Mucous Membranes Dry - Respiratory Exam Respiratory Exam: Clear to Ausculation Bilateral, NORMAL BREATHING PATTERN - Cardiovascular Exam Cardiovascular Exam: REGULAR RHYTHM, +S1, +S2 - GI/Abdominal Exam GI & Abdominal Exam: Soft, Normal Bowel Sounds - Neurological Exam Neurological Exam: Alert, Awake, Oriented x3 - Psychiatric Exam Psychiatric exam: Normal Affect, Normal Mood - Skin Skin Exam: Intact, Normal Color Original Note: <Gala Dallas - Last Filed: 12/27/17 20:59> Provider - Provider Date of Admission: 12/23/17 00:07 Attending physician: Rico Elkins MD Primary care physician: Chito Haskins MD Time Spent in preparation of Discharge (in minutes): 45 Hospital Course - Lab Results Lab Results: Micro Results 12/23/17 00:11 Blood Blood Culture - Preliminary NO GROWTH AFTER 4 DAYS 12/22/17 23:26 Blood Blood Culture - Preliminary NO GROWTH AFTER 4 DAYS 12/22/17 22:25 Urine Urine Culture - Final Streptococcus Viridans Most Recent Lab Values WBC 5.6 10^3/ul (4.5-11.0) 12/27/17 05:00 RBC 4.01 10^6/uL (3.5-6.1) 12/27/17 05:00 Hgb 11.7 g/dL (14.0-18.0) L 12/27/17 05:00 Hct 35.4 % (42.0-52.0) L 12/27/17 05:00 MCV 88.3 fl (80.0-105.0) 12/27/17 05:00 MCH 29.2 pg (25.0-35.0) 12/27/17 05:00 MCHC 33.1 g/dl (31.0-37.0) 12/27/17 05:00 RDW 14.4 % (11.5-14.5) 12/27/17 05:00 Plt Count 190 10^3/uL (120.0-450.0) 12/27/17 05:00 MPV 10.0 fl (7.0-11.0) 12/27/17 05:00 Gran % 63.9 % (50.0-68.0) 12/27/17 05:00 Lymph % (Auto) 21.6 % (22.0-35.0) L 12/27/17 05:00 [place] % (Auto) 10.9 % (1.0-6.0) H 12/27/17 05:00 Eos % (Auto) 3.2 % (1.5-5.0) 12/27/17 05:00 Baso % (Auto) 0.4 % (0.0-3.0) 12/27/17 05:00 Gran # 3.58 (1.4-6.5) 12/27/17 05:00 Lymph # (Auto) 1.2 (1.2-3.4) 12/27/17 05:00 [place] # (Auto) 0.6 (0.1-0.6) 12/27/17 05:00 Eos # (Auto) 0.2 (0.0-0.7) 12/27/17 05:00 Baso # (Auto) 0.02 K/mm3 (0.0-2.0) 12/27/17 05:00 PT 11.4 SECONDS (9.4-12.5) 12/22/17 22:05 INR 1.00 12/22/17 22:05 APTT 28.6 Seconds (25.1-36.5) 12/22/17 22:05 pO2 105 mm/Hg (30-55) H 12/22/17 23:26 VBG pH 7.44 (7.32-7.43) H 12/22/17 23:26 VBG pCO2 28.0 (40-60) L 12/22/17 23:26 VBG HCO3 19.0 mmol/l (21-28) L 12/22/17 23:26 VBG Total CO2 19.9 mmol.L (22-28) L 12/22/17 23:26 VBG O2 Sat (Calc) 99.9 % (40-65) H 12/22/17 23:26 VBG Base Excess -3.8 mmol/L (0.0-2.0) L 12/22/17 23:26 VBG Potassium 4.5 mmol/L (3.6-5.2) 12/22/17 23:26 Sodium 135.0 mmol/L (132-148) 12/22/17 23:26 Chloride 108.0 mmol/L (98-107) H 12/22/17 23:26 Glucose 102 mg/dl (75-110) 12/22/17 23:26 Lactate 1.3 mmol/L (0.7-2.1) 12/22/17 23:26 FiO2 21.0 % 12/22/17 23:26 Sodium 138 mmol/L (132-148) 12/27/17 06:30 Potassium 3.5 mmol/L (3.6-5.0) L 12/27/17 06:30 Chloride 108 mmol/L (98-107) H 12/27/17 06:30 Carbon Dioxide 21 mmol/L (21-33) 12/27/17 06:30 Anion Gap 12 (10-20) 12/27/17 06:30 BUN 12 mg/dL (7-21) 12/27/17 06:30 Creatinine 0.8 mg/dl (0.8-1.5) 12/27/17 06:30 Est GFR ( Amer) > 60 12/27/17 06:30 Est GFR (Non-Af Amer) > 60 12/27/17 06:30 Random Glucose 83 mg/dL (70-110) 12/27/17 06:30 Hemoglobin A1c 5.3 % (4.2-6.5) 12/24/17 06:20 Calcium 8.4 mg/dL (8.4-10.5) 12/27/17 06:30 Phosphorus 3.2 mg/dL (2.5-4.5) 12/27/17 06:30 Magnesium 1.8 mg/dL (1.7-2.2) 12/27/17 06:30 Total Bilirubin 0.4 mg/dL (0.2-1.3) 12/27/17 06:30 AST 24 U/L (17-59) 12/27/17 06:30 ALT 21 U/L (7-56) 12/27/17 06:30 Alkaline Phosphatase 50 U/L (38-126) 12/27/17 06:30 Lactate Dehydrogenase 559 U/L (333-699) 12/22/17 22:05 Total Creatine Kinase 358 U/L (35-230) H 12/22/17 22:05 CK-MB (CK-2) 3.7 ng/mL (0.0-3.6) H 12/22/17 22:05 CK-MB (CK-2) % Cancelled 12/22/17 22:05 Troponin I 0.23 ng/mL H* 12/23/17 07:00 Total Protein 5.8 g/dL (5.8-8.3) 12/27/17 06:30 Albumin 2.8 g/dL (3.0-4.8) L 12/27/17 06:30 Globulin 3.0 gm/dL 12/27/17 06:30 Albumin/Globulin Ratio 0.9 (1.1-1.8) L 12/27/17 06:30 Triglycerides 88 mg/dL (35-160) 12/24/17 06:20 Cholesterol 113 mg/dL (130-200) L 12/24/17 06:20 LDL Cholesterol Direct 45 mg/dL (0-129) 12/24/17 06:20 HDL Cholesterol 47 mg/dL (29-60) 12/24/17 06:20 Lipase 41 U/L (23-300) 12/22/17 22:05 Procalcitonin 11.01 NG/ML (0.19-0.49) H 12/23/17 02:45 TSH 3rd Generation 1.58 mIU/mL (0.46-4.68) 12/24/17 06:20 Venous Blood Potassium 4.5 mmol/L (3.6-5.2) 12/22/17 23:26 Urine Color Yellow (YELLOW) 12/22/17 22:25 Urine Appearance Cloudy (CLEAR) 12/22/17 22:25 Urine pH 8.5 (4.7-8.0) 12/22/17 22:25 Ur Specific [place] 1.015 (1.005-1.035) 12/22/17 22:25 Urine Protein >=300 mg/dL (<30 mg/dL) H 12/22/17 22:25 Urine Glucose (UA) Negative mg/dL (NEGATIVE) 12/22/17 22:25 Urine Ketones Negative mg/dL (NEGATIVE) 12/22/17 22:25 Urine Blood Large (NEGATIVE) H 12/22/17 22:25 Urine Nitrate Negative (NEGATIVE) 12/22/17 22:25 Urine Bilirubin Negative (NEGATIVE) 12/22/17 22:25 Urine Urobilinogen 0.2 E.U./dL (<1 E.U./dL) 12/22/17 22:25 Ur Leukocyte Esterase Moderate Mireya/uL (NEGATIVE) H 12/22/17 22:25 Urine RBC 0 - 2 /hpf (0-2) 12/22/17 22:25 Urine WBC 20 - 25 /hpf (0-6) 12/22/17 22:25 Ur Epithelial Cells 0 - 2 /hpf (0-5) 12/22/17 22:25 Urine Bacteria Many (NEG) 12/22/17 22:25 Alcohol, Quantitative < 10 mg/dL (0-10) 12/22/17 22:05 - Hospital Course Hospital Course: Upon admission: 82 year old male with no pertinent medical history presents s/p fall and with burning on urination for 3-4 months. Hx provided by son who is at bedside, as patient is somnolent 2/2 Ativan administration. Son states that pt has been refusing to see a doctor for his urinary complaints, but has had burning as well as foul smelling urine. Today, pt was wearing socks without shoes in the bathroom and slipped and fell. Both pt and son deny any palpitations or aura before fall. Of note, patients son mentions that the patient had a drink earlier- questionable hx of possible alcohol abuse. Of note, ED work-up reveals REYES, positive troponins, leukocytosis, UTI, sinus tachycardia, and negative head CT. Hospital Course: 82 year old male admitted for UTI and acute kidney injury secondary to BPH. He was started on Ceftriaxone and IV fluids. Procal, urine and blood cultures obtained. Preliminary cultures resulted no growth in the first 48 hours, results still pending. Patient was seen by nephrology, and told to follow up outpatient. In addition, he was found to have elevated troponins, likely due to acute kidney injury. Cardiology was consulted, serial EKGs and troponins were obtained. EKG resulted normal sinus rhythm, mildly prolonged QTc. He was started on Aspirin, statin, and metoprolol. During hospital stay, labs resulted hypokalemia, pt was started on oral potassium supplementation. Subsequent potassium resulted within normal limits. Patient was evaluated by physical therapy, and was able to ambulate with assistance. Patient lived home alone and need assistance to use the toilet so it was recommended patient go to [facility]. Discharge plan: Patient is stable for discharge to home with services as per Dr. Elkins. Patient is to follow up with new primary medical doctor within 3-5 days of discharge. Patient is to follow up with urology as discussed. Patient should resume all medications as prescribed and instructed in discharge instructions. Return to the emergency department if symptoms return or worsen. Patient understands and agrees with discharge plan. Patient was discharged with aspirin, statin, betablocker, and tamsulosin to continue taking outpatient. Patient was educated to followup with a new primary medical doctor and urologist once he is able to settle into new residence. Disclaimer: Written above is a synopsis of patients current hospital admission. For full admission refer to EMR. Discharge Exam - Head Exam Head Exam: NORMAL INSPECTION, NORMOCEPHALIC Discharge Plan - Discharge Medications Prescriptions: Aspirin [Low Dose Aspirin EC] 81 mg PO DAILY #30 tablet. Atorvastatin [Lipitor] 10 mg PO DIN #30 tab Metoprolol Tartrate [Lopressor] 12.5 mg PO BID #60 tab Tamsulosin [Flomax] 0.4 mg PO DAILY #30 cap - Follow Up Plan Condition: STABLE Disposition: HOME/ ROUTINE Instructions: Heart Healthy Diet, Myocardial Infarction (DC), Urinary Tract Infection in Men (DC), Sepsis (DC) Additional Instructions: 1. Patient is stable for discharge to [facility], as per Dr. Elkins. 2. Patient will follow up with new primary medical doctor and urologist once he moves to his new house. Patient understands that for continued management of his urological issues he will need to continue care with a urologist. 3. Patient will start taking the following medications: Aspirin once a day by mouth 81 mg; Metoprolol twice a day by mouth 12.5mg; Lipitor by mouth at night 10mg; Flomax once a day by mouth 0.4mg 4. Patient should return to the hospital if symptoms recur or worsen. Referrals: Chito Haskins MD [Primary Care Provider] - <Rico Elkins - Last Filed: 12/28/17 11:27> Provider - Provider Date of Admission: 12/23/17 00:07 Attending physician: Rico Elkins MD Primary care physician: Chito Haskins MD Hospital Course - Lab Results Lab Results: Micro Results 12/23/17 00:11 Blood Blood Culture - Final NO GROWTH AFTER 5 DAYS 12/23/17 00:11 Blood Gram Stain - Final TEST NOT PERFORMED 12/22/17 23:26 Blood Blood Culture - Final NO GROWTH AFTER 5 DAYS 12/22/17 23:26 Blood Gram Stain - Final TEST NOT PERFORMED 12/22/17 22:25 Urine Urine Culture - Final Streptococcus Viridans Most Recent Lab Values WBC 5.6 10^3/ul (4.5-11.0) 12/27/17 05:00 RBC 4.01 10^6/uL (3.5-6.1) 12/27/17 05:00 Hgb 11.7 g/dL (14.0-18.0) L 12/27/17 05:00 Hct 35.4 % (42.0-52.0) L 12/27/17 05:00 MCV 88.3 fl (80.0-105.0) 12/27/17 05:00 MCH 29.2 pg (25.0-35.0) 12/27/17 05:00 MCHC 33.1 g/dl (31.0-37.0) 12/27/17 05:00 RDW 14.4 % (11.5-14.5) 12/27/17 05:00 Plt Count 190 10^3/uL (120.0-450.0) 12/27/17 05:00 MPV 10.0 fl (7.0-11.0) 12/27/17 05:00 Gran % 63.9 % (50.0-68.0) 12/27/17 05:00 Lymph % (Auto) 21.6 % (22.0-35.0) L 12/27/17 05:00 [place] % (Auto) 10.9 % (1.0-6.0) H 12/27/17 05:00 Eos % (Auto) 3.2 % (1.5-5.0) 12/27/17 05:00 Baso % (Auto) 0.4 % (0.0-3.0) 12/27/17 05:00 Gran # 3.58 (1.4-6.5) 12/27/17 05:00 Lymph # (Auto) 1.2 (1.2-3.4) 12/27/17 05:00 [place] # (Auto) 0.6 (0.1-0.6) 12/27/17 05:00 Eos # (Auto) 0.2 (0.0-0.7) 12/27/17 05:00 Baso # (Auto) 0.02 K/mm3 (0.0-2.0) 12/27/17 05:00 PT 11.4 SECONDS (9.4-12.5) 12/22/17 22:05 INR 1.00 12/22/17 22:05 APTT 28.6 Seconds (25.1-36.5) 12/22/17 22:05 pO2 105 mm/Hg (30-55) H 12/22/17 23:26 VBG pH 7.44 (7.32-7.43) H 12/22/17 23:26 VBG pCO2 28.0 (40-60) L 12/22/17 23: VBG HCO3 19.0 mmol/l (21-28) L 12/22/17 23:26 VBG Total CO2 19.9 mmol.L (22-28) L 12/22/17 23:26 VBG O2 Sat (Calc) 99.9 % (40-65) H 12/22/17 23:26 VBG Base Excess -3.8 mmol/L (0.0-2.0) L 12/22/17 23:26 VBG Potassium 4.5 mmol/L (3.6-5.2) 12/22/17 23:26 Sodium 135.0 mmol/L (132-148) 12/22/17 23: Chloride 108.0 mmol/L (98-107) H 12/22/17 23: Glucose 102 mg/dl (75-110) 12/22/17 23: Lactate 1.3 mmol/L (0.7-2.1) 12/22/17 23:26 FiO2 21.0 % 12/22/17 23: Sodium 138 mmol/L (132-148) 12/27/17 06:30 Potassium 3.5 mmol/L (3.6-5.0) L 12/27/17 06:30 Chloride 108 mmol/L (98-107) H 12/27/17 06:30 Carbon Dioxide 21 mmol/L (21-33) 12/27/17 06:30 Anion Gap 12 (10-20) 12/27/17 06:30 BUN 12 mg/dL (7-21) 12/27/17 06:30 Creatinine 0.8 mg/dl (0.8-1.5) 12/27/17 06:30 Est GFR ( Amer) > 60 12/27/17 06:30 Est GFR (Non-Af Amer) > 60 12/27/17 06:30 Random Glucose 83 mg/dL (70-110) 12/27/17 06:30 Hemoglobin A1c 5.3 % (4.2-6.5) 12/24/17 06:20 Calcium 8.4 mg/dL (8.4-10.5) 12/27/17 06:30 Phosphorus 3.2 mg/dL (2.5-4.5) 12/27/17 06:30 Magnesium 1.8 mg/dL (1.7-2.2) 12/27/17 06:30 Total Bilirubin 0.4 mg/dL (0.2-1.3) 12/27/17 06:30 AST 24 U/L (17-59) 12/27/17 06:30 ALT 21 U/L (7-56) 12/27/17 06:30 Alkaline Phosphatase 50 U/L (38-126) 12/27/17 06:30 Lactate Dehydrogenase 559 U/L (333-699) 12/22/17 22:05 Total Creatine Kinase 358 U/L (35-230) H 12/22/17 22:05 CK-MB (CK-2) 3.7 ng/mL (0.0-3.6) H 12/22/17 22:05 CK-MB (CK-2) % Cancelled 12/22/17 22:05 Troponin I 0.23 ng/mL H* 12/23/17 07:00 Total Protein 5.8 g/dL (5.8-8.3) 12/27/17 06:30 Albumin 2.8 g/dL (3.0-4.8) L 12/27/17 06:30 Globulin 3.0 gm/dL 12/27/17 06:30 Albumin/Globulin Ratio 0.9 (1.1-1.8) L 12/27/17 06:30 Triglycerides 88 mg/dL (35-160) 12/24/17 06:20 Cholesterol 113 mg/dL (130-200) L 12/24/17 06:20 LDL Cholesterol Direct 45 mg/dL (0-129) 12/24/17 06:20 HDL Cholesterol 47 mg/dL (29-60) 12/24/17 06:20 Lipase 41 U/L (23-300) 12/22/17 22:05 Procalcitonin 11.01 NG/ML (0.19-0.49) H 12/23/17 02:45 TSH 3rd Generation 1.58 mIU/mL (0.46-4.68) 12/24/17 06:20 Venous Blood Potassium 4.5 mmol/L (3.6-5.2) 12/22/17 23:26 Urine Color Yellow (YELLOW) 12/22/17 22:25 Urine Appearance Cloudy (CLEAR) 12/22/17 22:25 Urine pH 8.5 (4.7-8.0) 12/22/17 22:25 Ur Specific [place] 1.015 (1.005-1.035) 12/22/17 22:25 Urine Protein >=300 mg/dL (<30 mg/dL) H 12/22/17 22:25 Urine Glucose (UA) Negative mg/dL (NEGATIVE) 12/22/17 22:25 Urine Ketones Negative mg/dL (NEGATIVE) 12/22/17 22:25 Urine Blood Large (NEGATIVE) H 12/22/17 22:25 Urine Nitrate Negative (NEGATIVE) 12/22/17 22:25 Urine Bilirubin Negative (NEGATIVE) 12/22/17 22:25 Urine Urobilinogen 0.2 E.U./dL (<1 E.U./dL) 12/22/17 22:25 Ur Leukocyte Esterase Moderate Mireya/uL (NEGATIVE) H 12/22/17 22:25 Urine RBC 0 - 2 /hpf (0-2) 12/22/17 22:25 Urine WBC 20 - 25 /hpf (0-6) 12/22/17 22:25 Ur Epithelial Cells 0 - 2 /hpf (0-5) 12/22/17 22:25 Urine Bacteria Many (NEG) 12/22/17 22:25 Alcohol, Quantitative < 10 mg/dL (0-10) 12/22/17 22:05 Attending/Attestation - Attestation I have personally seen and examined this patient.: Yes I have fully participated in the care of the patient.: Yes I have reviewed all pertinent clinical information, including history, physical exam and plan: Yes Notes (Text): 12/27/17 82 year old male with no known past medical history presented with UTI and REYES. He was started on IVF and antibiotics. REYES and leukocytosis resolved. He was also found to have elevated troponin, likely elevated in setting of REYES. Case was discussed with Dr. Lundy and no further cardiac workup recommended. He denies any chest pain or shortness of breath. He is on aspirin, statin and metoprolol. Patient is discharged to [facility]. Follow up with pmd and urology. Rico Elkins MD Hospitalist.
== END 2017-12-27 19:40 | disposition home or self-care (01) | DRG 683 ==
LOC: ED 21:27 → ERH 12-23 00:07 → 2RNO 12-23 01:45
PROVIDERS: ADMIT Internal Medicine; ATTEND Internal Medicine
DX: N17.9 Acute kidney failure, unspecified (principal); N39.0 Urinary tract infection, site not specified; I12.9 Hypertensive chronic kidney disease with stage 1 through stage 4 chronic kidney disease, or unspecified chronic kidney disease; N18.2 Chronic kidney disease, stage 2 (mild); E87.5 Hyperkalemia; N40.1 Benign prostatic hyperplasia with lower urinary tract symptoms; R35.0 Frequency of micturition; E87.6 Hypokalemia; B95.4 Other streptococcus as the cause of diseases classified elsewhere; Z96.659 Presence of unspecified artificial knee joint; E83.39 Other disorders of phosphorus metabolism; Z79.82 Long term (current) use of aspirin; Z85.820 Personal history of malignant melanoma of skin; Z87.891 Personal history of nicotine dependence